=== PATIENT | male | born 1990 | race Caucasian/White ===

== ENCOUNTER 2020-04-25 12:57 | Emergency (ER) | payer BC ==
[~2020-04-25] VITALS: Ht 180.3 cm; Wt 79.4 kg
[2020-04-25 13:04] VITALS: BP 135/67
--- NOTE | 2020-04-25 13:20 | NUR ---
AT BEDSIDE FOR EVAL.
[2020-04-25] MEDS ORDERED: TDAP [DIPH/PERTUSSIS/TET] 0.5 ML VIAL IM ONE (13:29)
[2020-04-25] MEDS: TDAP [DIPH/PERTUSSIS/TET] 0.5 ML VIAL IM ONE (13:33)
--- NOTE | 2020-04-25 13:33 | NUR ---
EXERCISE PHYSIOLOGIST CERTIFIED AT BEDSIDE FOR XRAY.
[2020-04-25] MEDS ORDERED: LIDOCAINE /MPF 1% VIAL 5 ML VIAL ONE ×2 (13:54→14:41)
[2020-04-25] MEDS: LIDOCAINE HCL/PF 1% 30 ML VIAL TP ONE (13:57)
--- NOTE | 2020-04-25 15:40 | NUR ---
SUTURING DONE BY .
--- NOTE | 2020-04-25 15:52 | NUR ---
Patient discharged to home in stable condition. Written and verbal after care instructions given. Patient verbalizes understanding of instruction.
== END 2020-04-25 15:54 | disposition home or self-care (01) ==
LOC: ER 13:03
DX: S61.422A Laceration with foreign body of left hand, initial encounter (principal); S51.812A Laceration without foreign body of left forearm, initial encounter; S61.215A Laceration without foreign body of left ring finger without damage to nail, initial encounter; W25.XXXA Contact with sharp glass, initial encounter; Y93.89 Activity, other specified; Y92.89 Other specified places as the place of occurrence of the external cause; Y99.8 Other external cause status
CPT/HCPCS: 12002; 12041; 73130; 90471; 90715; 99285; J3490 ×3